=== PATIENT | female | born 1970 | race Caucasian/White ===

== ENCOUNTER 2016-11-04 17:20 | Inpatient (IN) | payer BC, OTHER ==
[~2016-11-04] VITALS: Ht 157.5 cm; Wt 66.4 kg
[2016-11-04] MEDS ORDERED: TOPAMAX 100MG100 M1 PO ×2 (17:27→20:36)
[2016-11-04 18:47] LABS: INR 1.1 (0.8-3.0); PROTHROMBIN TIME 11.8 SECONDS (9.7-12.8)
[2016-11-04 18:59] LABS: BASO # 0.1 (0.0-0.2); EOS # 0.2 (0.0-0.7); EOS % 3.1 % (0-4.0); GRAN # 2.6 (1.4-6.5); GRAN % 49.5 % (42.2-75.2); HEMOGLOBIN 12.1 g/dl (12.5-16.0); LYMPH % 37.9 % (20.0-51.0); MEAN CELL VOLUME 90 fl (80.0-100.0); MEAN CORPUSCULAR HEMOGLOBIN 31 pg (27.0-31.0); MEAN CORPUSCULAR HGB CONC 34 g/dl (33.0-37.0); MONO # 0.4 (0.1-0.6); MONO % 8.3 % (1.7-9.3); RED BLOOD COUNT 3.93 M/mm3 (4.10-5.30); REDCELL DISTRIBUTION WIDTH-CV 12.1 % (11.5-14.5); WHITE BLOOD COUNT 5.2 K/mm3 (4.8-10.8)
[2016-11-04 19:00] LABS: HEMATOCRIT 35.3 % (37.0-47.0)
[2016-11-04 19:01] LABS: ADJUSTED CALCIUM 9.4 mg/dL (8.4-10.2); ALBUMIN 4.5 gm/dL (3.5-5.0); BILIRUBIN,TOTAL 0.7 mg/dL (0.0-1.0); CALCIUM 9.8 mg/dL (8.4-10.2); CREATININE, serum 0.95 mg/dL (0.52-1.25); POTASSIUM 3.6 mmol/L (3.4-5.0); TOTAL PROTEIN 7.4 gm/dL (6.4-8.2)
[2016-11-04 19:01] LABS: PLATELET COUNT 3 K/mm3 (130-400)
[2016-11-05 00:12] VITALS: BP 92/48; PULSE 63; TEMP 98.7
[2016-11-05 04:28] VITALS: BP 101/54; PULSE 57; TEMP 98.1
[2016-11-05 08:37] VITALS: BP 107/50; PULSE 69; TEMP 97.7
[2016-11-05 08:54] LABS: HEMATOCRIT 39.7 % (37.0-47.0); HEMOGLOBIN 13.8 g/dl (12.5-16.0); MEAN CELL VOLUME 90 fl (80.0-100.0); MEAN CORPUSCULAR HEMOGLOBIN 31 pg (27.0-31.0); MEAN CORPUSCULAR HGB CONC 35 g/dl (33.0-37.0); MEAN PLATELET VOLUME 15.5 fl (7.4-10.4); RED BLOOD COUNT 4.43 M/mm3 (4.10-5.30); REDCELL DISTRIBUTION WIDTH-CV 11.9 % (11.5-14.5); WHITE BLOOD COUNT 8.2 K/mm3 (4.8-10.8)
[2016-11-05 09:22] LABS: C-REACTIVE PROTEIN 0.6 mg/dL (0.0-0.9); CREATININE, serum 0.79 mg/dL (0.52-1.25); POTASSIUM 3.7 mmol/L (3.4-5.0)
[2016-11-05 09:37] LABS: ERYTHROCYTE SEDIMENTATION RATE 6 mm/hr (0-20)
[2016-11-05 09:50] LABS: THYROID STIMULATING HORMONE 0.177 uIU/mL (0.465-4.680)
[2016-11-05 10:25] LABS: PLATELET COUNT 10 K/mm3 (130-400)
[2016-11-05 10:40] LABS: ADD PATHOLOGY DIFF REVIEW NO
[2016-11-05 10:45] LABS: BAND 16 % (0-10); NEUTROPHILS 71 % (42.0-75.2); TOTAL CELLS COUNTED 100; TOXIC GRANULATION PRESENT
[2016-11-05 10:46] LABS: PLATELET ESTIMATE DECREASED (NORMAL)
[2016-11-05 12:23] LABS: HIV 1/2 Antibodies Non-Reactive; HIV-1p24 Antigen Non-Reactive
[2016-11-05 12:34] VITALS: BP 95/56; PULSE 71; TEMP 98.2
[2016-11-05 16:18] VITALS: BP 97/47; PULSE 81; TEMP 98.5
[2016-11-05 19:50] VITALS: BP 117/61; PULSE 85; TEMP 97.9
[2016-11-06 00:04] VITALS: BP 102/53; PULSE 73; TEMP 97.6
[2016-11-06 04:03] VITALS: BP 100/44; PULSE 57; TEMP 97.5
[2016-11-06 06:20] LABS: BASO % 0.2 % (0.0-2.0); GRAN # 14.7 (1.4-6.5); GRAN % 88.9 % (42.2-75.2); HEMATOCRIT 37.4 % (37.0-47.0); LYMPH # 1.2 (1.2-3.4); LYMPH % 7.4 % (20.0-51.0); MEAN CELL VOLUME 90 fl (80.0-100.0); MEAN CORPUSCULAR HEMOGLOBIN 31 pg (27.0-31.0); MEAN CORPUSCULAR HGB CONC 35 g/dl (33.0-37.0); MEAN PLATELET VOLUME 12.8 fl (7.4-10.4); MONO # 0.4 (0.1-0.6); MONO % 2.6 % (1.7-9.3); RED BLOOD COUNT 4.18 M/mm3 (4.10-5.30); REDCELL DISTRIBUTION WIDTH-CV 12.2 % (11.5-14.5); WHITE BLOOD COUNT 16.5 K/mm3 (4.8-10.8)
[2016-11-06 06:55] LABS: PLATELET COUNT 36 K/mm3 (130-400)
[2016-11-06 07:46] VITALS: BP 99/49; PULSE 55; TEMP 98
[2016-11-06] MEDS ORDERED: PREDNISONE20 MG PO (09:41)
[2016-11-06] MEDS ORDERED: PEPCID40 MG PO (09:43)
[2016-11-07 11:10] LABS: ALBUMIN FRACTION 4.5 g/dL (2.6-4.5); ALPHA 1 FRACTION 0.4 g/dL (0.3-0.5); ALPHA 1 PERCENTAGE 5.6 % (3.4-8.3); ALPHA 2 FRACTION 0.9 g/dL (0.6-1.2); ALPHA 2 PERCENTAGE 11.8 % (8.4-17.5); BETA 1 FRACTION 0.4 g/dL (0.4-0.6); BETA 1 PERCENTAGE 4.9 % (5.4-8.9); BETA 2 FRACTION 0.3 g/dL (0.2-0.5); BETA 2 PERCENTAGE 3.4 % (3.8-7.7); GAMMA FRACTION 0.9 g/dL (0.4-1.7); GAMMA PERCENTAGE 12.3 % (8.1-23.0); SERUM PROTEIN TOTAL 7.3 g/dL (6.1-7.7)
[2016-11-18 08:28] LABS: HEPARIN INDUCED ANTIBODY Negative (Negative); VW COAG FACTOR 140 (()); VW FACTOR ACTIVITY 174 (()); VW FACTOR ANTIGEN 149 (())
== END 2016-11-06 11:00 | disposition home or self-care (01) | DRG 813 ==
LOC: COL.ER 17:20 → MEDICAL 18:22
PROVIDERS: Emergency Medicine; Internal Medicine; Internal Medicine Medical Oncology
DX: D69.3 Immune thrombocytopenic purpura (principal); G40.909 Epilepsy, unspecified, not intractable, without status epilepticus
CPT/HCPCS: 87522; 99222-AI; 99232-AI; 99238; J2930; J7512

== ENCOUNTER → 2017-05-08 | Outpatient (CLI) | payer BC ==
[~2017-05-08] MED LIST: PEPCID40 MG PO; PREDNISONE20 MG PO; TOPAMAX 100MG100 M1 PO
== END ==
LOC: MC.RAD 10:46
DX: Z12.31 Encounter for screening mammogram for malignant neoplasm of breast (principal)

== ENCOUNTER → 2018-06-02 | Outpatient (CLI) | payer BC | LOC: MC.RAD 11:00 | DX: Z12.31 Encounter for screening mammogram for malignant neoplasm of breast (principal) ==

== ENCOUNTER → 2019-07-12 | Outpatient (CLI) | payer BC | LOC: MC.RAD 11:30 | DX: Z12.31 Encounter for screening mammogram for malignant neoplasm of breast (principal); N63.11 Unspecified lump in the right breast, upper outer quadrant ==

== ENCOUNTER → 2019-07-15 | Outpatient (CLI) | payer BC | LOC: MC.RAD 13:00 | DX: N63.10 Unspecified lump in the right breast, unspecified quadrant (principal) | CPT/HCPCS: G0279 ==

== ENCOUNTER → 2020-07-17 | Outpatient (CLI) | payer BC | LOC: MC.RAD 07:44 | DX: Z12.31 Encounter for screening mammogram for malignant neoplasm of breast (principal) ==

== ENCOUNTER 2020-07-26 07:38 | Day surgery (SDC) | payer BC ==
[~2020-07-26] VITALS: Ht 157.5 cm; Wt 55.9 kg
[2020-07-26] MEDS ORDERED: PROMACTA25 MG PO (07:55)
[2020-07-26 08:04] VITALS: BP 105/55; PULSE 55; TEMP 97.7
[2020-07-26 09:25] VITALS: BP 91/48; PULSE 62
--- NOTE | 2020-07-26 09:25 | NUR ---
Returns to [address] per cart and arouses to verbal stimuli. Assisted from cart to recliner with two person assist. IV fluids continue to infuse. Spouse in room. Allowed to rest. Warm blankets given and chair reclined for comfort.
[2020-07-26 09:40] VITALS: BP 92/59; PULSE 50
--- NOTE | 2020-07-26 09:40 | NUR ---
Very drowsy and continues to rest with eyes closed.
[2020-07-26 09:55] VITALS: BP 93/56; PULSE 47
--- NOTE | 2020-07-26 09:55 | NUR ---
Drinking water and eating crackers. IV fluids continue to infuse.
[2020-07-26 10:10] VITALS: BP 99/51; PULSE 49
--- NOTE | 2020-07-26 10:10 | NUR ---
Drinking hot chocolate and tolerated crackers and water.
--- NOTE | 2020-07-26 10:18 | NUR ---
Drinking second cup of hot chocolate. Denies nausea or abdominal pain.
--- NOTE | 2020-07-26 10:26 | NUR ---
Patient dresses self. IV discontinued and site is free of redness.
--- NOTE | 2020-07-26 10:28 | NUR ---
Dismissal instruction given and signed. Patient dismissed to home driven by spouse and taken to the front door per wheelchair and assisted into vehicle with instructions in hand.
== END 2020-07-26 10:28 | disposition home or self-care (01) ==
LOC: SDCO 07:38
DX: Z12.11 Encounter for screening for malignant neoplasm of colon (principal); F41.9 Anxiety disorder, unspecified; D69.3 Immune thrombocytopenic purpura; G43.909 Migraine, unspecified, not intractable, without status migrainosus; Z88.0 Allergy status to penicillin; G40.909 Epilepsy, unspecified, not intractable, without status epilepticus; D69.6 Thrombocytopenia, unspecified; Z20.828 Contact with and (suspected) exposure to other viral communicable diseases
CPT/HCPCS: J2704; J7120

== ENCOUNTER → 2021-08-20 | Outpatient (CLI) | payer BC ==
[~2021-08-20] MED LIST changes: +PROMACTA25 MG PO
== END ==
LOC: MC.RAD 15:30
DX: Z12.31 Encounter for screening mammogram for malignant neoplasm of breast (principal)